=== PATIENT | male | born 1985 | race Caucasian/White ===

== ENCOUNTER 2018-03-06 07:21 | Day surgery (SDC) | payer OTHER ==
[~2018-03-06] VITALS: Ht 167.6 cm; Wt 117.0 kg
[~2018-03-06 07:21] MED LIST: ALBU90OI INH; DIVA250EC PO; ESCI20 PO; Percocet 5-3251 EACH PO; QUETIAPINE FUM100 MG PO
== END 2018-03-06 10:45 | disposition home or self-care (01) ==
LOC: ORSCMMR 07:21 → ORD 08:45 → ORSCMMR 08:45
PROVIDERS: Surgery
PROC: 0JBL0ZX Excision of Right Upper Leg Subcutaneous Tissue and Fascia, Open Approach, Diagnostic (ICD-10-PCS; principal; 2018-03-06 08:45)
DX: D17.23 Benign lipomatous neoplasm of skin and subcutaneous tissue of right leg (principal); Q85.01 Neurofibromatosis, type 1; E78.5 Hyperlipidemia, unspecified; Z79.899 Other long term (current) drug therapy
CPT/HCPCS: 88304; J0690; J2250; J3010; J7120